=== PATIENT | female | born 1975 | race Caucasian/White ===

== ENCOUNTER → 2017-04-24 | Emergency (ER) | payer OTHER ==
[~2017-04-24] VITALS: Ht 124.5 cm; Wt 55.8 kg
[~2017-04-24] MED LIST: AMOX1TAB12 PO; BACTROBAN OINT22 GM TP; CELEXA20 MG PO; CODE1TAB37 PO; Ditropan PO; FIORICET 50-321 EACH PO; MACROBID 100 M100 MG PO; MOTRIN800 MG PO; Mylicon 125MG PO; PEPCID AC20 MG PO; ULTRAM50 MG PO
== END | disposition home or self-care (01) ==
LOC: ER 18:19
DX: K52.89 Other specified noninfective gastroenteritis and colitis (principal)

== ENCOUNTER 2017-12-15 17:39 | Emergency (ER) | payer OTHER ==
[~2017-12-15] VITALS: Ht 149.9 cm; Wt 54.4 kg
== END 2017-12-15 20:22 | disposition home or self-care (01) ==
LOC: ER 17:39
DX: M53.3 Sacrococcygeal disorders, not elsewhere classified (principal)